=== PATIENT | female | born 1950 | race Caucasian/White ===

== ENCOUNTER → 2017-07-12 | Outpatient (CLI) | payer OTHER ==
--- NOTE | 2017-07-17 11:35 | RSPPFT ---
DATE OF PROCEDURE: 07/12/17 COMMENTS: VOLUMES DYNAMIC: FVC and FEV1 mildly reduced. STATIC: TLC, FRC and RV moderately reduced. FLOWS: FEV1% and FEF 25-75 normal. DIFFUSION: Severely reduced. FLOW VOLUME LOOP: Restrictive configuration. IMPRESSION: Moderately severe restrictive ventilatory defect with no significant obstruction. There is a severe reduction in diffusion.
== END ==
LOC: PHRSP 08:36
PROVIDERS: ATTEND Internal Medicine
DX: J98.4 Other disorders of lung (principal)
CPT/HCPCS: 94060; 94620; 94726; 94729

== ENCOUNTER 2017-12-02 12:19 | Inpatient (IN) | payer OTHER, MEDICARE ==
[~2017-12-02] VITALS: Ht 157.5 cm; Wt 72.4 kg
[2017-12-02 12:30] VITALS: BP 147/62; PULSE 90; RESP 22; TEMP 97.4; O2SAT 98
--- NOTE | 2017-12-02 12:39 | PD ---
HPI Chief Complaint: SOB Time Seen by Provider: 12:32 Travel History International Travel<30 days: No Contact w/Intl Traveler<30days: No History of Present Illness HPI 67yo F with PMH of sarcoidosis, lupus, interstitial lung disease, sick sinus syndrome s/p pacemaker here with c/o sob for 2 days but worst today. Pt went to [place] and was on a 10 hour bus ride last night. SOB began while in [place]. Denies any fever, chest pain, n/v, abdominal pain, focal weakness or numbness. Pt also noticed more bilateral lower extremity swelling for last 5-6 days. Said she gets this frequently and usually improves with elevation of legs. Pt's acoustical installer is Dr. Gurrola and labor and employment paralegal is Dr. Valderrama. Pt has not needed home oxygen for 2 years. PFSH Social History Tobacco Use: No Allergies-Medications (Allergen,Severity, Reaction): Coded Allergies: Penicillins (Verified Allergy, Intermediate, Rash, 12/02/17) vancomycin (Verified Allergy, Intermediate, Rash, 12/02/17) Reported Meds & Prescriptions Reported Meds & Active Scripts Active Reported Novolog Inj (Insulin Aspart) 1,000 Unit/10 Ml Vial 1-9 Units SQ ACHS Max dose at bedtime:( )units; sugars less than 70,(0)units; sugars 150-199,(1) unit; sugars 200-249,(3) units; sugars 250-299,(5) units; sugars 300-349,(7) units; sugars greater than 349,(9) units Lantus Inj (Insulin Glargine) 1,000 Unit/10 Ml Vial 12 Units SQ HS Metoprolol Succinate ER 24 HR (Metoprolol Succinate) 100 Mg Tab 100 Mg PO DAILY Atorvastatin (Atorvastatin Calcium) 10 Mg Tab 10 Mg PO HS Mycophenolate (Mycophenolate Mofetil) 250 Mg Cap 1,000 Mg PO BID Amlodipine (Amlodipine Besylate) 10 Mg Tab 10 Mg PO DAILY Meloxicam 15 Mg Tab 15 Mg PO DAILY Sertraline (Sertraline HCl) 50 Mg Tab 50 Mg PO DAILY Levothyroxine (Levothyroxine Sodium) 88 Mcg Tab 88 Mcg PO DAILY Aspirin 81 Mg Chew 81 Mg CHEW DAILY Review of Systems Except as stated in HPI: all other systems reviewed are Neg Physical Exam Narrative GENERAL: 67yo F in moderate distress. SKIN: Focused skin assessment warm/dry. HEAD: Atraumatic. Normocephalic. EYES: Pupils equal and round. No scleral icterus. No injection or drainage. ENT: No nasal bleeding or discharge. Mucous membranes pink and moist. NECK: Trachea midline. No JVD. CARDIOVASCULAR: Regular rate and rhythm. No murmur appreciated. RESPIRATORY: + accessory muscle use. Bilateral crackles. GASTROINTESTINAL: Abdomen soft, non-tender, nondistended. Hepatic and splenic margins not palpable. MUSCULOSKELETAL: No obvious deformities. No clubbing. No cyanosis. +Bilateral lower extremity edema. NEUROLOGICAL: Awake and alert. No obvious cranial nerve deficits. Motor grossly within normal limits. Normal speech. PSYCHIATRIC: Appropriate mood and affect; insight and judgment normal. Data Data Last Documented VS Vital Signs Date Time Temp Pulse Resp B/P (MAP) Pulse Ox O2 Delivery O2 Flow Rate FiO2 12/02/17 14:36 90 24 138/62 (87) 96 Nasal Cannula 3.00 12/02/17 12:30 97.4 Orders Orders Complete Blood Count With Diff (12/02/17 12:32) Basic Metabolic Panel (Bmp) (12/02/17 12:32) B-Type Natriuretic Peptide (12/02/17 12:32) Act Partial Throm Time (Ptt) (12/02/17 12:32) Prothrombin Time / Inr (Pt) (12/02/17 12:32) Troponin I (12/02/17 12:32) Arterial Blood Gas (Abg) (12/02/17 12:32) Chest, Single Ap (12/02/17 12:32) Ct Pulmonary Angiogram (12/02/17 ) Iohexol 350 Inj (Omnipaque 350 Inj) (12/02/17 14:11) Electrocardiogram (12/02/17 12:31) Levofloxacin 750 Mg Premix Inj (Levaquin (12/02/17 15:45) Admit Order (Ed Use Only) (12/02/17 16:01) Labs Laboratory Tests Test 12/02/17 12:50 12/02/17 13:35 White Blood Count 9.4 TH/MM3 Red Blood Count 3.96 MIL/MM3 Hemoglobin 11.7 GM/DL Hematocrit 35.9 % Mean Corpuscular Volume 90.6 FL Mean Corpuscular Hemoglobin 29.5 PG Mean Corpuscular Hemoglobin Concent 32.6 % Red Cell Distribution Width 14.9 % Platelet Count 177 TH/MM3 Mean Platelet Volume 8.3 FL Neutrophils (%) (Auto) 72.8 % Lymphocytes (%) (Auto) 10.2 % Monocytes (%) (Auto) 11.5 % Eosinophils (%) (Auto) 2.6 % Basophils (%) (Auto) 2.9 % Neutrophils # (Auto) 6.8 TH/MM3 Lymphocytes # (Auto) 1.0 TH/MM3 Monocytes # (Auto) 1.1 TH/MM3 Eosinophils # (Auto) 0.2 TH/MM3 Basophils # (Auto) 0.3 TH/MM3 CBC Comment DIFF FINAL Differential Comment Prothrombin Time 10.2 SEC Prothromb Time International Ratio 1.0 RATIO Activated Partial Thromboplast Time 25.9 SEC Blood Urea Nitrogen 18 MG/DL Creatinine 0.64 MG/DL Random Glucose 184 MG/DL Calcium Level 8.4 MG/DL Sodium Level 140 MEQ/L Potassium Level 4.3 MEQ/L Chloride Level 106 MEQ/L Carbon Dioxide Level 21.6 MEQ/L Anion Gap 12 MEQ/L Estimat Glomerular Filtration Rate 93 ML/MIN Troponin I 0.02 NG/ML B-Type Natriuretic Peptide 133 PG/ML Blood Gas Puncture Site LT RADIAL Blood Gas Patient Temperature 98.6 Blood Gas HCO3 21 mmol/L Blood Gas Base Excess -2.7 mmol/L Blood Gas Oxygen Saturation 84 % Arterial Blood pH 7.45 Arterial Blood Partial Pressure CO2 30 mmHG Arterial Blood Partial Pressure O2 56 mmHG Arterial Blood Oxygen Content 13.9 Vol % Arterial Blood Carboxyhemoglobin 2.3 % Arterial Blood Methemoglobin 1.3 % Blood Gas Hemoglobin 11.8 G/DL Oxygen Delivery Device ROOM AIR Blood Gas Inspired Oxygen 21 % [facility] Medical Decision Making Medical Screen Exam Complete: Yes Emergency Medical Condition: Yes Interpretation(s) EKG: NSR 90bpm. Normal axis. T wave flattening. Differential Diagnosis CHF vs. Pneumonia vs. pleural effusion vs. worsening interstitial lung disease Narrative Course 67yo F here with sob for 2 days, worst today. Pt is hypoxic on room air and ABG showed O2 sat 84% and pO2 56 on room air. Pt saturating at 98% on 3L NC. She has history of interstitial lung disease but has not needed home oxygen in 2 years. Labs reviewed, no leukocytosis. H/H normal. BNP mildly elevated at 133. BMP unremarkable. Troponin negative. CXR showed diffuse increased interstitial markings. Could be related to pulmonary edema or chronic interstitial disease. Given pt's sudden sob, hypoxemia and recent travel, will obtain CT angio. CT angio showed no PE. Interstitial disease at base and patchy fernanda of consolidation throughout the lungs with relative sparing of left upper lung. Inflammatory/infectious processes need to be suspected. Mediastinal adenopathy. Nonspecific. Could be reactive to lung processes. Pt has sarcoidosis so likely from that. Pt covered with levofloxacin for possible infection. Will need to come in and be evaluated by acoustical installer. Discussed with Dr. Calvillo and accepted to her service. Critical Care Narrative Aggregate critical care time was 40 minutes. Time to perform other separately billable procedures was not included in the critical care time. My time did not include minutes spent treating any other patients simultaneously or on activities that did not directly contribute to the patient's treatment. The services I provided to this patient were to treat and/or prevent clinically significant deterioration that could result in: respiratory distress or . I provided critical care services requiring my management, as noted below: Chart data review, documentation time, medication orders and management, vital sign assessments/reviewing monitor data, ordering and reviewing lab tests, ordering and interpreting/reviewing x-rays and diagnostic studies, care of the patient and discussion of the patient with the admitting physicians. Diagnosis Primary Impression: Hypoxemia Additional Impression: Pneumonia Qualified Codes: J18.9 - Pneumonia, unspecified organism Admitting Information Admitting Physician Requests: Admit Eliza Coughlin DO Dec 02, 2017 12:39
[2017-12-02 13:02] LABS: AUTOMATED NEUTROPHIL # 6.8 TH/MM3 (1.8-7.7); BASOPHIL # 0.3 TH/MM3 (0-0.2); BASOPHIL % 2.9 % (0.0-2.0); EOSINOPHIL # 0.2 TH/MM3 (0-0.4); EOSINOPHIL % 2.6 % (0.0-4.0); HEMATOCRIT 35.9 % (35.0-46.0); HEMOGLOBIN 11.7 GM/DL (11.6-15.3); LYMPH % 10.2 % (9.0-44.0); MEAN CELL VOLUME 90.6 FL (80.0-100.0); MEAN CORPUSCULAR HEMOGLOBIN 29.5 PG (27.0-34.0); MEAN CORPUSCULAR HGB CONC 32.6 % (32.0-36.0); MEAN PLATELET VOLUME 8.3 FL (7.0-11.0); MONO % 11.5 % (0.0-8.0); MONOCYTE # 1.1 TH/MM3 (0-0.9); NEUT % 72.8 % (16.0-70.0); PLATELET COUNT 177 TH/MM3 (150-450); RED BLOOD COUNT 3.96 MIL/MM3 (4.00-5.30); RED CELL DISTRIBUTION WIDTH 14.9 % (11.6-17.2); WHITE BLOOD COUNT 9.4 TH/MM3 (4.0-11.0)
--- NOTE | 2017-12-02 13:17 | RADRPT ---
EXAM DATE/TIME: 12/02/2017 13:05 [facility] COMPARISON: No previous studies available for comparison. INDICATIONS : Short of breath, cough, congestion MEDICAL HISTORY : None. SURGICAL HISTORY : Pacemaker. ENCOUNTER: Initial ACUITY: 1 day PAIN SCORE: 0/10 LOCATION: Bilateral chest FINDINGS: There is a patient by seen in the right chest. The heart size is within normal limits. There is diffu se increased interstitial markings. The there appear to be mild bilateral pleural effusions being wor se on the left. The patient is rotated towards the right. There is a levocurvature of the thoracic sp ine. CONCLUSION: Diffuse increased interstitial markings. If these are acute, they could be related to pulmonary edema . Chronic interstitial disease could have a similar appearance. Prior exams are unavailable. Terence Iqbal MD on December 02, 2017 at 13:11 Board Certified Radiologist. This report was verified electronically.
[2017-12-02 13:18] LABS: CALCIUM 8.4 MG/DL (8.5-10.1)
[2017-12-02 13:19] LABS: BICARBONATE 21.6 MEQ/L (21.0-32.0)
[2017-12-02] MEDS ORDERED: AMLO10TA2 PO (13:19)
[2017-12-02] MEDS ORDERED: MELO15TA20 PO (13:19)
[2017-12-02] MEDS ORDERED: SERT-132 PO (13:19)
[2017-12-02] MEDS ORDERED: ASPI-516 CHEW (13:19)
[2017-12-02] MEDS ORDERED: METO1TAB43 PO (13:19)
[2017-12-02] MEDS ORDERED: MYCO250C PO (13:19)
[2017-12-02] MEDS ORDERED: LEVO88TA2 PO (13:19)
[2017-12-02] MEDS ORDERED: ATOR10TA15 PO (13:19)
[2017-12-02 13:22] LABS: PROTHROMBIN TIME - PATIENT 10.2 SEC (9.8-11.6)
[2017-12-02 13:23] LABS: CREATININE 0.64 MG/DL (0.50-1.00)
[2017-12-02 13:27] LABS: TROPONIN I 0.02 NG/ML (0.02-0.05)
[2017-12-02] MEDS ORDERED: IOHEXOL 350 MG/ML 10 ML VIAL (for RAD DIAG) IVCONTRAST ONE (14:11)
[2017-12-02 14:36] VITALS: BP 138/62; PULSE 90; RESP 24; O2SAT 96
--- NOTE | 2017-12-02 15:00 | RADRPT ---
EXAM DATE/TIME: 12/02/2017 13:56 [facility] COMPARISON: CHEST SINGLE AP, December 02, 2017, 13:05. INDICATIONS : Increasing shortness of breath. Post long road trip. IV CONTRAST: 100 cc Omnipaque 350 (iohexol) IV RADIATION DOSE: 6.63 CTDIvol (mGy) MEDICAL HISTORY : Lupus. ILD. Sarcoidosis. SURGICAL HISTORY : Appendectomy. Tonsillectomy. Left shoulder, right ankle. ENCOUNTER: Initial ACUITY: 1 day PAIN SCALE: 2/10 LOCATION: Chest TECHNIQUE: Volumetric scanning of the chest was performed using a pulmonary embolism protocol MIP images were re constructed. Using automated exposure control and adjustment of the mA and/or kV according to patien t size, radiation dose was kept as low as reasonably achievable to obtain optimal diagnostic quality images. DICOM format image data is available electronically for review and comparison. Follow-up recommendations for detected pulmonary nodules are based at a minimum on nodule size and pa tient risk factors according to Fleischner Society Guidelines. FINDINGS: PULMONARY ARTERIES: No filling defects are seen in the pulmonary arteries through the segmental level. LUNGS: There is interstitial disease seen at the lower lungs bilaterally being worse on the right. There are patchy areas of consolidation seen throughout the lungs with relative sparing of the left upper lung . PLEURAE: Minimal bilateral pleural effusions are present. MEDIASTINUM: There are prominent lymph nodes in the mediastinum. The most prominent lymph node is in the right par atracheal region measuring up to 2.5 cm. There are lymph nodes seen in the subcarinal, tracheobronchi al, and hilar regions. There is a pacing device seen in the right chest. MUSCULOSKELETAL: Within normal limits for patient age. MISCELLANEOUS: The visualized upper abdominal organs demonstrate no acute abnormality. CONCLUSION: 1. No pulmonary embolus. 2. Interstitial disease at the bases and patchy areas of consolidation throughout the lungs with rela tive sparing of the left upper lung. Inflammatory/infectious processes need to be suspected. 3. Mediastinal adenopathy. This is nonspecific. It could be reactive to the lung processes. Neoplasti c enlargement cannot be excluded on imaging alone. Terence Iqbal MD on December 02, 2017 at 14:19 Board Certified Radiologist. This report was verified electronically.
[2017-12-02] MEDS ORDERED: LEVOFLOXACIN 750 MG PREMIX INJ 150 ML IV ONE (15:45)
[2017-12-02 16:15] VITALS: BP 136/68; PULSE 90; RESP 24; O2SAT 94
[2017-12-02] MEDS ORDERED: ONDANSETRON HCL 4 MG/2 ML VIAL IV PUSH PRN (16:15)
[2017-12-02] MEDS ORDERED: NOVOLOGP2 SQ (16:15)
[2017-12-02] MEDS ORDERED: LANTUS2P SQ (16:15)
[2017-12-02] MEDS ORDERED: SODIUM CHLORIDE 0.9% FLUSH 10 ML FLUSH IV FLUSH PRN (16:15)
[2017-12-02] MEDS ORDERED: guaiFENesin/CODEINE SYRUP 200 MG/20 MG/10 ML CUP PO PRN (16:15)
[2017-12-02] MEDS ORDERED: DEXTROSE 50% IN WATER 50 ML VIAL(D50) IV PUSH PRN (16:15)
[2017-12-02] MEDS ORDERED: ACETAMINOPHEN 325 MG TAB PO PRN (16:15)
[2017-12-02] MEDS ORDERED: GLUCAGON 1 MG/ML VIAL OTHER PRN (16:15)
[2017-12-02] MEDS ORDERED: RESP: ALBUTEROL 2.5 MG/IPRATROPIUM 0.5 MG NEB (PRN) INH (16:15)
--- NOTE | 2017-12-02 16:28 | HHI.HP ---
[facility] Service [facility] Primary Care Physician Karl Daugherty Do, MD Admission Diagnosis Hypoxemia, bilateral pneumonia Diagnoses: Chief Complaint: Increased work of breathing and wheezes Travel History International Travel<30 Days: No Contact w/Intl Traveler <30 Da: No Traveled to Known Affected Are: No History of Present Illness This patient is a pleasant 67-year-old female with a history of interstitial lung disease and sarcoidosis who has come to the hospital complaining of increased shortness of breath for the last 2 days. Recently she was on a bus trip from [facility] to [place] and arrived home yesterday. Yesterday evening her who was in the room and says that she was wheezing and making "God awful "breathing sounds. he checked her oxygen at home and it was in the low 80s. Increased work of breathing and wheezes and has hypoxemic on ambulation in the emergency room. She had a nebulizer at home but it was discontinued per her providers. Since that time she has received some bronchodilators and steroids and felt a little better. Patient is admitted to the hospital with acute hypoxemic respiratory failure Review of Systems Constitutional: DENIES: Diaphoretic episodes, Fatigue, Fever, Weight gain, Weight loss, Chills, Dizziness, Change in appetite, Night Sweats Endocrine: DENIES: Abnorml menstrual pattern, Heat/cold intolerance, Polydipsia , Polyuria, Polyphagia Eyes: DENIES: Blurred vision, Diplopia, Eye inflammation, Eye pain, Vision loss , Photosensitivity, Double Vision Ears, nose, mouth, throat: DENIES: Tinnitus, Hearing loss, Vertigo, Nasal discharge, Oral lesions, Throat pain, Hoarseness, Ear Pain, Running Nose, Epistaxis, Sinus Pain, Toothache, Odynophagia Respiratory: COMPLAINS OF: Cough, Wheezing, Shortness of breath, DENIES: Apneas , Snoring, Hemoptysis, Sputum production Cardiovascular: COMPLAINS OF: Dyspnea on Exertion, DENIES: Chest pain, Palpitations, Syncope, PND, Lower Extremity Edema, Orthopnea, Claudication Gastrointestinal: DENIES: Abdominal pain, Black stools, Bloody stools, Constipation, Diarrhea, Nausea, Vomiting, Difficulty Swallowing, Anorexia Genitourinary: DENIES: Abnormal vaginal bleeding, Dysmenorrhea, Dyspareunia, Sexual dysfunction, Urinary frequency, Urinary incontinence, Urgency, Hematuria , Dysuria, Nocturia, Vaginal discharge Musculoskeletal: DENIES: Joint pain, Muscle aches, Stiffness, Joint Swelling, Back pain, Neck pain Integumentary: DENIES: Abnormal pigmentation, Pruritus, Rash, Nail changes, Breast masses, Breast skin changes, Nipple discharge Hematologic/lymphatic: DENIES: Bruising, Lymphadenopathy Immunologic/allergic: DENIES: Eczema, Urticaria Neurologic: DENIES: Abnormal gait, Headache, Localized weakness, Paresthesias, Seizures, Speech Problems, Tremor, Poor Balance Psychiatric: DENIES: Anxiety, Confusion, Mood changes, Depression, Hallucinations, Agitation, Suicidal Ideation, Homicidal Ideation, Delusions Except as stated in HPI: all other systems reviewed are Neg Past Family Social History Past Medical History Diabetes Interstitial lung disease Sarcoidosis Lupus Thyroid disease Past Surgical History Tonsillectomy Right ankle, left shoulder, cholecystectomy, appendectomy Reported Medications Reviewed in the EMR, no steroids recently Allergies: Coded Allergies: Penicillins (Verified Allergy, Intermediate, Rash, 12/02/17) vancomycin (Verified Allergy, Intermediate, Rash, 12/02/17) Active Ordered Medications Reviewed in the EMR Family History Mother from asthma and respiratory failure Father from a heart attack at 52 Brother has coronary disease Social History Recent bus trip from [place] in [place] No tobacco Physical Exam Vital Signs Vital Signs Date Time Temp Pulse Resp B/P (MAP) Pulse Ox O2 Delivery O2 Flow Rate FiO2 12/02/17 16:15 90 24 136/68 (90) 94 Nasal Cannula 3.00 12/02/17 14:36 90 24 138/62 (87) 96 Nasal Cannula 3.00 12/02/17 12:40 22 98 Nasal Cannula 3.00 12/02/17 12:30 97.4 90 22 147/62 (90) 98 Physical Exam GENERAL: This is a well-nourished, well-developed patient, in no apparent distress. SKIN: No rashes, ecchymoses or lesions. Cool and dry. HEAD: Atraumatic. Normocephalic. No temporal or scalp tenderness. EYES: Pupils equal round and reactive. Extraocular motions intact. No scleral icterus. No injection or drainage. ENT: Nose without bleeding, purulent drainage or septal hematoma. Throat without erythema, tonsillar hypertrophy or exudate. Uvula midline. Airway patent. NECK: Trachea midline. No JVD or lymphadenopathy. Supple, nontender, no meningeal signs. CARDIOVASCULAR: Regular rate and rhythm without murmurs, gallops, or rubs. RESPIRATORY: Clear to auscultation. Breath sounds equal bilaterally. No wheezes , rales, or rhonchi. GASTROINTESTINAL: Abdomen soft, non-tender, nondistended. No hepato-splenomegaly , or palpable masses. No guarding. MUSCULOSKELETAL: Extremities without clubbing, cyanosis, or edema. No joint tenderness, effusion, or edema noted. No calf tenderness. Negative Homans sign bilaterally. NEUROLOGICAL: Awake and alert. Cranial nerves II through XII intact. Motor and sensory grossly within normal limits. Five out of 5 muscle strength in all muscle groups. Normal speech. Laboratory Laboratory Tests Test 12/02/17 12:50 12/02/17 13:35 White Blood Count 9.4 Red Blood Count 3.96 Hemoglobin 11.7 Hematocrit 35.9 Mean Corpuscular Volume 90.6 Mean Corpuscular Hemoglobin 29.5 Mean Corpuscular Hemoglobin Concent 32.6 Red Cell Distribution Width 14.9 Platelet Count 177 Mean Platelet Volume 8.3 Neutrophils (%) (Auto) 72.8 Lymphocytes (%) (Auto) 10.2 Monocytes (%) (Auto) 11.5 Eosinophils (%) (Auto) 2.6 Basophils (%) (Auto) 2.9 Neutrophils # (Auto) 6.8 Lymphocytes # (Auto) 1.0 Monocytes # (Auto) 1.1 Eosinophils # (Auto) 0.2 Basophils # (Auto) 0.3 CBC Comment DIFF FINAL Differential Comment Prothrombin Time 10.2 Prothromb Time International Ratio 1.0 Activated Partial Thromboplast Time 25.9 Blood Urea Nitrogen 18 Creatinine 0.64 Random Glucose 184 Calcium Level 8.4 Sodium Level 140 Potassium Level 4.3 Chloride Level 106 Carbon Dioxide Level 21.6 Anion Gap 12 Estimat Glomerular Filtration Rate 93 Troponin I 0.02 B-Type Natriuretic Peptide 133 Blood Gas Puncture Site LT RADIAL Blood Gas Patient Temperature 98.6 Blood Gas HCO3 21 Blood Gas Base Excess -2.7 Blood Gas Oxygen Saturation 84 Arterial Blood pH 7.45 Arterial Blood Partial Pressure CO2 30 Arterial Blood Partial Pressure O2 56 Arterial Blood Oxygen Content 13.9 Arterial Blood Carboxyhemoglobin 2.3 Arterial Blood Methemoglobin 1.3 Blood Gas Hemoglobin 11.8 Oxygen Delivery Device ROOM AIR Blood Gas Inspired Oxygen 21 Result Diagram: 12/02/17 1250 12/02/[address] of the chest shows interstitial lung disease with infiltrates likely pneumonia Caprini VTE Risk Assessment Caprini VTE Risk Assessment: Mod/High Risk (score >= 2) Caprini Risk Assessment Model Point Value = 1 Point Value = 2 Point Value = 3 Point Value = 5 Age 41-60 Minor surgery BMI > 25 kg/m2 Swollen legs Varicose veins or History of unexplained or recurrent spontaneous Oral contraceptives or hormone replacement Sepsis (< 1 month) Serious lung disease, including pneumonia (< 1 month) Abnormal pulmonary function Acute myocardial infarction Congestive heart failure (< 1 month) History of inflammatory bowel disease Medical patient at bed rest Age 61-74 Arthroscopic surgery Major open surgery (> 45 min) Laparoscopic surgery (> 45 min) Malignancy Confined to bed (> 72 hours) Immobilizing plaster cast Central venous access Age >= 75 History of VTE Family history of VTE Factor V Leiden Prothrombin [id number] Lupus anticoagulant Anticardiolipin antibodies Elevated serum homocysteine Heparin-induced thrombocytopenia Other congenital or acquired thrombophilia Stroke (< 1 month) Elective arthroplasty Hip, pelvis, or leg fracture Acute spinal cord injury (< 1 month) Prophylaxis Regimen Total Risk Factor Score Risk Level Prophylaxis Regimen 0-1 Low Early ambulation 2 Moderate Order ONE of the following: *Sequential Compression Device (SCD) *Heparin 5000 units SQ BID 3-4 Higher Order ONE of the following medications: *Heparin 5000 units SQ TID *Enoxaparin/Lovenox 40 mg SQ daily (WT < 150 kg, CrCl > 30 mL/min) *Enoxaparin/Lovenox 30 mg SQ daily (WT < 150 kg, CrCl > 10-29 mL/min) *Enoxaparin/Lovenox 30 mg SQ BID (WT < 150 kg, CrCl > 30 mL/min) AND/OR *Sequential Compression Device (SCD) 5 or more Highest Order ONE of the following medications: *Heparin 5000 units SQ TID (Preferred with Epidurals) *Enoxaparin/Lovenox 40 mg SQ daily (WT < 150 kg, CrCl > 30 mL/min) *Enoxaparin/Lovenox 30 mg SQ daily (WT < 150 kg, CrCl > 10-29 mL/min) *Enoxaparin/Lovenox 30 mg SQ BID (WT < 150 kg, CrCl > 30 mL/min) AND *Sequential Compression Device (SCD) Assessment and Plan Problem List: (1) Acute hypoxemic respiratory failure ICD Code: J96.01 - Acute respiratory failure with hypoxia Plan: Likely multifactorial due to underlying interstitial lung disease with pneumonia Continue with antibiotic therapy, bronchodilators, patient education and follow- up clinically Continue O2 (2) DM2 (diabetes mellitus, type 2) ICD Code: E11.9 - Type 2 diabetes mellitus without complications Plan: Continue with diabetic management and sliding scale Diabetic diet (3) HTN (hypertension) ICD Code: I10 - Essential (primary) hypertension Plan: Continue with home medications for blood control (4) Interstitial lung disease ICD Code: J84.9 - Interstitial pulmonary disease, unspecified Plan: Currently decompensated which is multifactorial Continue with mycophenolate Code Status full code Discussed Condition With patient, ER MD Physician Certification 2 Midnight Certification Type: Admission for Inpatient Services Order for Inpatient Services The services are ordered in accordance with Medicare regulations or non- Medicare payer requirements, as applicable. In the case of services not specified as inpatient-only, they are appropriately provided as inpatient services in accordance with the 2-midnight benchmark. Estimated LOS (days): 3 3 days is the estimated time the patient will need to remain in the hospital, assuming treatment plan goals are met and no additional complications. Post-Hospital Plan: Home Candida Calvillo MD Dec 02, 2017 16:28
[2017-12-02] MEDS: INSULIN ASPART SUPPLEMENTAL SCALE SQ SCH ×2 (17:00→20:55)
[2017-12-02 17:20] VITALS: BP 135/91; PULSE 79; RESP 24; TEMP 97.3
[2017-12-02] MEDS: methylPREDNISolone SOD SUCC 40 MG/1 ML VIAL IV PUSH SCH (17:27)
[2017-12-02] MEDS: cefTRIAXone INJ 1,000 MG in SODIUM CHLORIDE 0.9% INJ 100 ML IV SCH (17:28)
[2017-12-02] MEDS: ENOXAPARIN SODIUM 40 MG/0.4 ML SYRINGE SQ SCH (17:43)
[2017-12-02] MEDS: AZITHROMYCIN INJ 500 MG in SODIUM CHLOR 0.9% 250 ML INJ 250 ML IV SCH (18:28)
[2017-12-02] MEDS: MYCOPHENOLATE MOFETIL 500 MG TAB PO SCH (18:44)
--- NOTE | 2017-12-02 19:09 | EKG ---
Date Performed: 12/02/2017 Time Performed: 12:31:08 PTAGE: 67 years EKG: Sinus rhythm NONSPECIFIC T-WAVE ABNORMALITY BORDERLINE ECG NO PREVIOUS TRACING DOCTOR: Selena Roa Interpretating Date/Time 12/02/2017 19:07:47
[2017-12-02 20:23] VITALS: O2SAT 93
[2017-12-02] MEDS: RESP: ALBUTEROL 2.5 MG/IPRATROPIUM 0.5 MG NEB (SCH) INH (20:23)
[2017-12-02] MEDS: INSULIN DETEMIR 100 UNITS/ML VIAL SQ SCH (20:54)
[2017-12-02] MEDS: ATORVASTATIN 10 MG TAB PO SCH (20:54)
[2017-12-02] MEDS: SODIUM CHLORIDE 0.9% FLUSH 10 ML FLUSH IV FLUSH SCH (20:55)
[2017-12-02 22:25] VITALS: BP 121/60; PULSE 83; RESP 24; TEMP 97.2; O2SAT 91
[2017-12-03] VITALS (8 sets, daily range): BP systolic 121–130; BP diastolic 57–62; PULSE 85–96; RESP 16–24; TEMP 96.2–97.9; O2SAT 90–99
[2017-12-03] MEDS: LEVOTHYROXINE SODIUM 88 MCG TAB PO SCH (05:25)
[2017-12-03] MEDS: methylPREDNISolone SOD SUCC 40 MG/1 ML VIAL IV PUSH SCH ×2 (05:25→17:09)
[2017-12-03] MEDS: MYCOPHENOLATE MOFETIL 500 MG TAB PO SCH ×2 (06:09→17:09)
[2017-12-03] MEDS: RESP: ALBUTEROL 2.5 MG/IPRATROPIUM 0.5 MG NEB (SCH) INH ×3 (07:18→19:53)
[2017-12-03] MEDS: INSULIN ASPART SUPPLEMENTAL SCALE SQ SCH ×4 (08:00→21:00)
[2017-12-03] MEDS: ASPIRIN 81 MG CHEW TAB CHEW SCH (08:01)
[2017-12-03] MEDS: METOPROLOL SUCCINATE 50 MG EXTENDED RELEASE TAB PO SCH (08:01)
[2017-12-03] MEDS: SERTRALINE HCL 50 MG TAB PO SCH (08:01)
[2017-12-03 08:48] LABS: BASOPHIL % 0.5 % (0.0-2.0); EOSINOPHIL % 0.1 % (0.0-4.0); HEMATOCRIT 34.8 % (35.0-46.0); HEMOGLOBIN 11.5 GM/DL (11.6-15.3); LYMPH % 9.6 % (9.0-44.0); LYMPHOCYTE # 0.6 TH/MM3 (1.0-4.8); MEAN CELL VOLUME 89.7 FL (80.0-100.0); MEAN CORPUSCULAR HEMOGLOBIN 29.6 PG (27.0-34.0); MEAN PLATELET VOLUME 8.5 FL (7.0-11.0); MONO % 1.2 % (0.0-8.0); MONOCYTE # 0.1 TH/MM3 (0-0.9); NEUT % 88.6 % (16.0-70.0); PLATELET COUNT 176 TH/MM3 (150-450); RED BLOOD COUNT 3.89 MIL/MM3 (4.00-5.30); RED CELL DISTRIBUTION WIDTH 14.9 % (11.6-17.2); WHITE BLOOD COUNT 6.7 TH/MM3 (4.0-11.0)
--- NOTE | 2017-12-03 08:50 | HHI.PR ---
Subjective Remarks Patient seen in follow-up for respiratory failure secondary to influenza and pneumonia Still working a bit hard to breathe today. Patient has interstitial lung disease Objective Vitals Vital Signs Date Time Temp Pulse Resp B/P (MAP) Pulse Ox O2 Delivery O2 Flow Rate FiO2 12/03/17 07:20 91 Nasal Cannula 3.00 12/03/17 04:25 12/03/17 00:47 96.7 87 24 126/61 (82) 91 12/02/17 22:25 97.2 83 24 121/60 (80) 91 12/02/17 20:23 93 Nasal Cannula 3.00 12/02/17 17:20 97.3 79 24 135/91 (106) 12/02/17 16:56 12/02/17 16:15 90 24 136/68 (90) 94 Nasal Cannula 3.00 12/02/17 14:36 90 24 138/62 (87) 96 Nasal Cannula 3.00 12/02/17 12:40 22 98 Nasal Cannula 3.00 12/02/17 12:30 97.4 90 22 147/62 (90) 98 I/O 12/02/17 12/02/17 12/02/17 12/03/17 12/03/17 12/03/17 07:00 15:00 23:00 07:00 15:00 23:00 Intake Total 250 ml Balance 250 ml Intake IV Total 250 ml # Voids 1 5 Result Diagram: 12/02/17 1250 12/02/17 1250 Objective Remarks GENERAL: This is a well-nourished, well-developed patient, dyspneic at rest CARDIOVASCULAR: Regular rate and rhythm without murmurs, gallops, or rubs. RESPIRATORY: Scattered wheezes but improved airflow GASTROINTESTINAL: Abdomen soft, non-tender, nondistended. Normal active bowel sounds MUSCULOSKELETAL: Extremities without clubbing, cyanosis, or edema. NEURO: Alert & Oriented x4 to person, place, time, situation. Moves all ext x4 A/P Problem List: (1) Acute hypoxemic respiratory failure ICD Code: J96.01 - Acute respiratory failure with hypoxia Plan: Likely multifactorial due to underlying interstitial lung disease with pneumonia and now influenza Continue IV antibiotic therapy, nebulized bronchodilators, patient education and follow-up clinically Continue O2 Add Tamiflu (2) DM2 (diabetes mellitus, type 2) ICD Code: E11.9 - Type 2 diabetes mellitus without complications Plan: Continue with diabetic management and sliding scale Diabetic diet (3) HTN (hypertension) ICD Code: I10 - Essential (primary) hypertension Plan: Continue with home medications for blood control (4) Interstitial lung disease ICD Code: J84.9 - Interstitial pulmonary disease, unspecified Plan: Currently decompensated which is multifactorial Continue with mycophenolate Patient follows up with Dr. Cullen Gurrola who we will consult Discharge Planning Pending clinical improvement Candida Calvillo MD Dec 03, 2017 08:50
[2017-12-03] MEDS: SODIUM CHLORIDE 0.9% FLUSH 10 ML FLUSH IV FLUSH SCH ×2 (09:00→22:13)
[2017-12-03 09:03] LABS: CALCIUM 9.2 MG/DL (8.5-10.1)
[2017-12-03 09:04] LABS: BICARBONATE 17.7 MEQ/L (21.0-32.0)
[2017-12-03 09:07] LABS: CREATININE 0.64 MG/DL (0.50-1.00)
[2017-12-03] MEDS ORDERED: BISACODYL EC 5 MG TABEC PO ONE (10:15)
[2017-12-03] MEDS: OSELTAMIVIR PHOSPHATE 75 MG CAP PO SCH ×2 (10:30→22:13)
[2017-12-03] MEDS: MELOXICAM 15 MG TAB PO SCH (10:31)
--- NOTE | 2017-12-03 12:21 | MB ---
cc: Sam Gomez MD DATE: 12/03/[address] Fernando Gurrola. HISTORY OF PRESENT ILLNESS: The patient is a very pleasant 67-year-old female who is known to have a history of interstitial lung disease and sarcoidosis. The patient is maintained on mycophenolate. The patient came to the hospital after she started to have shortness of breath the past 2 days that kept on getting worse and worse. She was on a trip in [place], [place]. The patient came to the hospital and today she is doing much better. The patient was wheezy and making significant awful sounds, according to her and her . Today, she is much better. She is not having any fevers or chills. She does not have any hemoptysis or chest pain. PAST MEDICAL HISTORY: Reviewed, positive for diabetes mellitus, interstitial lung disease/sarcoidosis, lupus, thyroid disease. PAST SURGICAL HISTORY: Positive for tonsillectomy, right ankle, left shoulder, cholecystectomy, and appendectomy. REVIEW OF SYSTEMS: Negative except what was mentioned in the HPI. ALLERGIES: ALLERGIC TO PENICILLIN AND VANCOMYCIN. PHYSICAL EXAMINATION: VITAL SIGNS: Shows temperature 96.2, pulse 85, respiratory rate 20, blood pressure 120/60, O2 saturation 97% on 3 L nasal cannula. HEENT: Atraumatic, normocephalic. NECK: Trachea midline. LUNGS: Bilateral expiratory wheezes of mild degree and mild rhonchi. HEART: Normal S1, S2. ABDOMEN: Soft. It is not tender. EXTREMITIES: No edema or cyanosis. NEUROLOGIC: Alert, oriented x 3, moves all extremities. LABORATORY DATA: Reviewed. WBC 6.7, hemoglobin 11.5, platelets 176. Her last ABGs done yesterday, pH 7.45, PaCO2 is 30, pO2 is 56. Sodium 136, potassium 4.1, BUN 22, creatinine 0.64. Her INR is 1.0. The patient's nasal washings were positive for flu A antigen. A CT angiogram that was done yesterday, it did show no pulmonary embolus. It did show interstitial lung disease at the bases and patchy areas of consolidation. Also, she does have nonspecific mediastinal lymphadenopathy that can be just reactive disease. ASSESSMENT AND PLAN: Acute hypoxemia, most likely secondary to her flu A and an exacerbation of her underlying interstitial/sarcoidosis lung disease. The patient is already improving. 1. Continue antiviral therapy as well as systemic steroids. Continue the current therapy the patient is on as an outpatient, namely the mycophenolate. 2. Continue oxygen therapy and wean for FiO2 more than or equal to 89%. 3. At this point, the patient is improving and I am expecting that she will be able to go home in 1 or [address] Fernando Gurrola will be back tomorrow and he will continue to follow the patient since she is already established with him. I had a long discussion with her and addressed all her questions. MD EUGENIO Miller/ASUNCION , 12:00 PM , 12:20 PM
[2017-12-03] MEDS: cefTRIAXone INJ 1,000 MG in SODIUM CHLORIDE 0.9% INJ 100 ML IV SCH (16:01)
[2017-12-03] MEDS: AZITHROMYCIN INJ 500 MG in SODIUM CHLOR 0.9% 250 ML INJ 250 ML IV SCH (16:58)
[2017-12-03] MEDS: ENOXAPARIN SODIUM 40 MG/0.4 ML SYRINGE SQ SCH (16:59)
[2017-12-03] MEDS ORDERED: INSULIN ASPART 1,000 UNITS/10 ML VIAL SQ ONE (19:15)
[2017-12-03] MEDS: INSULIN DETEMIR 100 UNITS/ML VIAL SQ SCH (21:00)
[2017-12-03] MEDS: ATORVASTATIN 10 MG TAB PO SCH (22:13)
[2017-12-03] MEDS: DOCUSATE SODIUM 100 MG CAP PO SCH (22:13)
[2017-12-04] VITALS (8 sets, daily range): BP systolic 122–148; BP diastolic 60–75; PULSE 82–93; RESP 18–20; TEMP 96–97.6; O2SAT 92–98
[2017-12-04] MEDS: MYCOPHENOLATE MOFETIL 500 MG TAB PO SCH ×2 (06:00→17:54)
[2017-12-04] MEDS: methylPREDNISolone SOD SUCC 40 MG/1 ML VIAL IV PUSH SCH ×2 (06:55→17:01)
[2017-12-04] MEDS: LEVOTHYROXINE SODIUM 88 MCG TAB PO SCH (06:56)
[2017-12-04] MEDS: RESP: ALBUTEROL 2.5 MG/IPRATROPIUM 0.5 MG NEB (SCH) INH ×3 (07:29→20:48)
[2017-12-04] MEDS: METOPROLOL SUCCINATE 50 MG EXTENDED RELEASE TAB PO SCH (09:13)
[2017-12-04] MEDS: OSELTAMIVIR PHOSPHATE 75 MG CAP PO SCH ×2 (09:13→21:46)
[2017-12-04] MEDS: ASPIRIN 81 MG CHEW TAB CHEW SCH (09:13)
[2017-12-04] MEDS: DOCUSATE SODIUM 100 MG CAP PO SCH ×2 (09:13→21:46)
[2017-12-04] MEDS: SERTRALINE HCL 50 MG TAB PO SCH (09:13)
[2017-12-04] MEDS: INSULIN ASPART SUPPLEMENTAL SCALE SQ SCH ×4 (09:13→21:00)
[2017-12-04] MEDS: SODIUM CHLORIDE 0.9% FLUSH 10 ML FLUSH IV FLUSH SCH ×2 (09:13→21:45)
[2017-12-04] MEDS: MELOXICAM 15 MG TAB PO SCH (09:14)
--- NOTE | 2017-12-04 16:42 | HHI.PR ---
Subjective Remarks Slowly improving in regards to respiratory status. Patient was on 4 L last night but has weaned down to 2 L this morning and is tolerating room air at rest when seen today. She may be ready for discharge home tomorrow. No new complaints from the patient. Objective Vital Signs Date Time Temp Pulse Resp B/P (MAP) Pulse Ox O2 Delivery O2 Flow Rate FiO2 12/04/17 14:29 92 Nasal Cannula 1.00 12/04/17 11:50 96.3 82 20 142/75 (97) 92 12/04/17 08:00 96 12/04/17 07:50 96.0 89 20 127/66 (86) 96 12/04/17 07:32 98 Nasal Cannula 4.00 12/04/17 00:00 97.6 92 18 122/68 (86) 95 12/03/17 20:00 97.9 96 16 121/62 (81) 97 12/03/17 19:53 95 Nasal Cannula 4.00 I/O 12/03/17 12/03/17 12/03/17 12/04/17 12/04/17 12/04/17 07:00 15:00 23:00 07:00 15:00 23:00 Intake Total 1196 ml Balance 1196 ml Intake Oral 1196 ml # Voids 5 7 4 # Bowel Movements 1 Result Diagram: 12/03/1782112/03/17821 Objective Remarks GENERAL: NAD, A&Ox3 HEAD: Normocephalic. NECK: Supple, trachea midline. No lymphadenopathy. EYES: No scleral icterus. No injection or drainage. CARDIOVASCULAR: Regular rate and rhythm without murmurs, gallops, or rubs. RESPIRATORY: Breath sounds equal bilaterally. No accessory muscle use. GASTROINTESTINAL: Abdomen soft, non-tender, nondistended. MUSCULOSKELETAL: No cyanosis, or edema. SKIN: Warm and dry. NEURO: No focal neurological deficitis. A/P Problem List: (1) Acute hypoxemic respiratory failure ICD Code: J96.01 - Acute respiratory failure with hypoxia (2) DM2 (diabetes mellitus, type 2) ICD Code: E11.9 - Type 2 diabetes mellitus without complications (3) HTN (hypertension) ICD Code: I10 - Essential (primary) hypertension (4) Interstitial lung disease ICD Code: J84.9 - Interstitial pulmonary disease, unspecified (5) Pneumonia ICD Code: J18.9 - Pneumonia, unspecified organism Status: Acute (6) Hypoxemia ICD Code: R09.02 - Hypoxemia Status: Acute Assessment and Plan 67-year-old female admitted secondary to hypoxemia and bilateral pneumonia Acute hypoxemic respiratory failure Hypoxia Chronic Interstitial lung disease Resolving on current treatments Continue treating influenza Continue antibiotics, bronchodilators, oxygen, and respiratory support with nebulizers Pulmonology following Diabetes mellitus type 2 Exacerbated secondary to steroids Follow blood sugars Insulin sliding scale Diabetic diet Hypertension Continue baseline treatment Follow blood pressures Adjust treatments as needed Discharge Planning Possible discharge tomorrow if ambulatory without need for oxygen Problem Qualifiers (1) Pneumonia: Qualified Codes: J18.9 - Pneumonia, unspecified organism Prince Sanford MD Dec 04, 2017 16:42
[2017-12-04] MEDS: ENOXAPARIN SODIUM 40 MG/0.4 ML SYRINGE SQ SCH (17:01)
[2017-12-04] MEDS: cefTRIAXone INJ 1,000 MG in SODIUM CHLORIDE 0.9% INJ 100 ML IV SCH (17:02)
[2017-12-04] MEDS: AZITHROMYCIN INJ 500 MG in SODIUM CHLOR 0.9% 250 ML INJ 250 ML IV SCH (18:37)
[2017-12-04] MEDS: ATORVASTATIN 10 MG TAB PO SCH (21:46)
[2017-12-04] MEDS: INSULIN DETEMIR 100 UNITS/ML VIAL SQ SCH (22:27)
[2017-12-05] VITALS: BP 129/64; PULSE 78; RESP 20; TEMP 96; O2SAT 96
[2017-12-05] MEDS: methylPREDNISolone SOD SUCC 40 MG/1 ML VIAL IV PUSH SCH (05:04)
[2017-12-05] MEDS: MYCOPHENOLATE MOFETIL 500 MG TAB PO SCH (05:04)
[2017-12-05] MEDS: LEVOTHYROXINE SODIUM 88 MCG TAB PO SCH (05:04)
[2017-12-05] MEDS: RESP: ALBUTEROL 2.5 MG/IPRATROPIUM 0.5 MG NEB (SCH) INH ×2 (07:40→14:24)
[2017-12-05 07:42] VITALS: O2SAT 98
[2017-12-05 08:00] VITALS: BP 148/71; PULSE 84; RESP 18; TEMP 97.7; O2SAT 95
[2017-12-05] MEDS: INSULIN ASPART SUPPLEMENTAL SCALE SQ SCH ×2 (08:00→12:57)
[2017-12-05] MEDS: MELOXICAM 15 MG TAB PO SCH (08:07)
[2017-12-05] MEDS: ASPIRIN 81 MG CHEW TAB CHEW SCH (08:07)
[2017-12-05] MEDS: SERTRALINE HCL 50 MG TAB PO SCH (08:08)
[2017-12-05] MEDS: DOCUSATE SODIUM 100 MG CAP PO SCH (08:08)
[2017-12-05] MEDS: METOPROLOL SUCCINATE 50 MG EXTENDED RELEASE TAB PO SCH (08:08)
[2017-12-05] MEDS: SODIUM CHLORIDE 0.9% FLUSH 10 ML FLUSH IV FLUSH SCH (08:08)
[2017-12-05] MEDS: OSELTAMIVIR PHOSPHATE 75 MG CAP PO SCH (08:08)
[2017-12-05] MEDS ORDERED: predniSONE 10 MG TAB PO SCH (09:15)
[2017-12-05] MEDS ORDERED: LEVA500T33 PO (09:44)
[2017-12-05] MEDS ORDERED: LACTTAB8 PO (09:44)
[2017-12-05] MEDS ORDERED: OXYGENDME NAS.CANULA (09:44)
[2017-12-05] MEDS ORDERED: PRED10 PO (09:44)
[2017-12-05] MEDS ORDERED: AZIT500T2 PO (09:44)
[2017-12-05] MEDS ORDERED: OSEL75 PO (10:17)
--- NOTE | 2017-12-05 10:21 | HHI.DS ---
Discharge Summary Admission Date Dec 02, 2017 at 16:03 Discharge Date: Dec 05, 2017 Admitting Diagnosis Hypoxemia, bilateral pneumonia (1) Acute hypoxemic respiratory failure ICD Code: J96.01 - Acute respiratory failure with hypoxia Diagnosis: Principal (2) DM2 (diabetes mellitus, type 2) ICD Code: E11.9 - Type 2 diabetes mellitus without complications Diagnosis: Principal (3) HTN (hypertension) ICD Code: I10 - Essential (primary) hypertension Diagnosis: Principal (4) Interstitial lung disease ICD Code: J84.9 - Interstitial pulmonary disease, unspecified Diagnosis: Principal Procedures None Brief History - From Admission This patient is a pleasant 67-year-old female with a history of interstitial lung disease and sarcoidosis who has come to the hospital complaining of increased shortness of breath for the last 2 days. Recently she was on a bus trip from [facility] to [place] and arrived home yesterday. Yesterday evening her who was in the room and says that she was wheezing and making "God awful "breathing sounds. he checked her oxygen at home and it was in the low 80s. Increased work of breathing and wheezes and has hypoxemic on ambulation in the emergency room. She had a nebulizer at home but it was discontinued per her providers. Since that time she has received some bronchodilators and steroids and felt a little better. Patient is admitted to the hospital with acute hypoxemic respiratory failure CBC/BMP: 12/03/17 0822 12/03/17 0822 Significant Findings Laboratory Tests Test 12/02/17 12:50 12/02/17 13:35 12/03/17 08:22 Red Blood Count 3.96 MIL/MM3 (4.00-5.30) 3.89 MIL/MM3 (4.00-5.30) Neutrophils (%) (Auto) 72.8 % (16.0-70.0) 88.6 % (16.0-70.0) Monocytes (%) (Auto) 11.5 % (0.0-8.0) Basophils (%) (Auto) 2.9 % (0.0-2.0) Monocytes # (Auto) 1.1 TH/MM3 (0-0.9) Basophils # (Auto) 0.3 TH/MM3 (0-0.2) Random Glucose 184 MG/DL (74-106) 205 MG/DL (74-106) Calcium Level 8.4 MG/DL (8.5-10.1) B-Type Natriuretic Peptide 133 PG/ML (0-100) Blood Gas HCO3 21 mmol/L (22-26) Blood Gas Base Excess -2.7 mmol/L (-2-2) Blood Gas Oxygen Saturation 84 % (90-100) Arterial Blood pH 7.45 (7.380-7.420) Arterial Blood Partial Pressure CO2 30 mmHG (38-42) Arterial Blood Partial Pressure O2 56 mmHG (61-120) Blood Gas Hemoglobin 11.8 G/DL (12.0-16.0) Hemoglobin 11.5 GM/DL (11.6-15.3) Hematocrit 34.8 % (35.0-46.0) Lymphocytes # (Auto) 0.6 TH/MM3 (1.0-4.8) Blood Urea Nitrogen 22 MG/DL (7-18) Carbon Dioxide Level 17.7 MEQ/L (21.0-32.0) PE at Discharge GENERAL: This is a well-nourished, well-developed patient, dyspneic at rest CARDIOVASCULAR: Regular rate and rhythm without murmurs, gallops, or rubs. RESPIRATORY: Scattered wheezes but improved airflow GASTROINTESTINAL: Abdomen soft, non-tender, nondistended. Normal active bowel sounds MUSCULOSKELETAL: Extremities without clubbing, cyanosis, or edema. NEURO: Alert & Oriented x4 to person, place, time, situation. Moves all ext x4 Hospital Course Mrs. Cuevas is a 67 year old female. She has a history of interstitial lung disease and sarcoidosis. Influenza with evidence of pneumonia were found when she was admitted here with respiratory distress and hypoxia. She is treated with steroids antibiotics and breathing treatments. She is having improvement, but this is more slow going due to underlying comorbidities as stated. She has improved enough to be functional at this point. She needs oxygen at discharge, for home. Medically stable for discharge to home with oxygen today and completion of oral treatments (steroids, antibiotics, tamiflu, MDI Inhaler of albuterol). Pt Condition on Discharge: Stable Discharge Disposition: Discharge Home Discharge Time: > 30 minutes Discharge Instructions DIET: Follow Instructions for: As Tolerated, No Restrictions Activities you can perform: Regular-No Restrictions Follow up Referrals: PCP Follow-up - 2 Weeks Pulmonology - 2 Weeks New Medications: Albuterol 18 GM Inh (Ventolin Hfa 18 GM Inh) 90 Mcg/Act Aer 2 PUFF INH Q4H PRN for SHORTNESS OF BREATH, #1 INHALER 0 Refills Azithromycin (Azithromycin) 500 Mg Tab 500 MG PO DAILY for Infection, #3 TAB 0 Refills Lactobacillus Acidophilus (Lactobacillus Acidophilus) 1 Billion Cell Tab 1 TAB PO TIDAC for Nutritional Supplement, #30 TAB 0 Refills Levofloxacin (Levaquin) 500 Mg Tablet 500 MG PO DAILY for Infection, #7 TAB 0 Refills Oxygen (O2) (Oxygen (O2)) Device LITER TERENCE.CANULA CONTINUOUS for Prevent Hypoxemia, #2 Oxygen Concentrator Portable Gaseous 2 L/min via Nasal Canula Continuous For 99 months Prednisone (Prednisone) 10 Mg Tab 10 MG PO DIRECTED for Inflammation, #20 TAB 0 Refills 2 pills by mouth Daily, Day 1 to 6 1 pill by mouth Daily, Day 7 to 12 1/2 pill by mouth Daily, Day 13 to 16 Then Stop Oseltamivir (Tamiflu) 75 Mg Cap 75 MG PO BID for Flu, #4 CAP Continued Medications: Amlodipine (Amlodipine) 10 Mg Tab 10 MG PO DAILY for Blood Pressure Management, #30 TAB 0 Refills Aspirin (Aspirin) 81 Mg Chew 81 MG CHEW DAILY, TAB 0 Refills Atorvastatin (Atorvastatin) 10 Mg Tab 10 MG PO HS for Cholesterol Management, #30 TAB 0 Refills Insulin Aspart Inj (Novolog Inj) 1,000 Unit/10 Ml Vial 1-9 UNITS SQ ACHS for Blood Sugar Management, #10 ML 0 Refills Max dose at bedtime:( )units; sugars less than 70,(0)units; sugars 150-199,(1) unit; sugars 200-249,(3) units; sugars 250-299,(5) units; sugars 300-349,(7) units; sugars greater than 349,(9) units Insulin Glargine Inj (Lantus Inj) 1,000 Unit/10 Ml Vial 12 UNITS SQ HS for Blood Sugar Management, VIAL 0 Refills Levothyroxine (Levothyroxine) 88 Mcg Tab 88 MCG PO DAILY for Thyroid, #30 TAB 0 Refills Meloxicam (Meloxicam) 15 Mg Tab 15 MG PO DAILY for Arthritis Pain, #30 TAB 0 Refills Metoprolol Succinate ER 24 HR (Metoprolol Succinate ER 24 HR) 100 Mg Tab 100 MG PO DAILY, #30 TAB 0 Refills Mycophenolate (Mycophenolate) 250 Mg Cap 1000 MG PO BID for Immunosuppression, #240 CAP 0 Refills Sertraline (Sertraline) 50 Mg Tab 50 MG PO DAILY, #30 TAB 0 Refills Prince Sanford MD Dec 05, 2017 10:21
[2017-12-05] MEDS ORDERED: VENTAER INH (10:22)
--- NOTE | 2017-12-05 13:57 | HHI.FF ---
Face to Face Verification Diagnosis: (1) Interstitial lung disease (2) Hypoxemia (3) Acute hypoxemic respiratory failure Home Health Nursing Order: Oxygen administration education I have seen patient Nohemi Dotson on 12/05/17. My clinical findings support the need for the requested home health care services because: Patient has SOB Deconditioned w/ increased weakness I certify that my clinical findings support that this patient is homebound because: Hx COPD- exertion dyspnea/weakness Unsafe to leave home unassisted Unable to use public transportation Prince Sanford MD Dec 05, 2017 13:57
== END 2017-12-05 16:14 | disposition home or self-care (01) | DRG 189 ==
LOC: PHED 12:19 → PHEDA 16:03 → PH3A 16:44
PROVIDERS: ADMIT Hospitalist; ATTEND Hospitalist
DX: J96.01 Acute respiratory failure with hypoxia (principal); J84.9 Interstitial pulmonary disease, unspecified; J18.9 Pneumonia, unspecified organism; I49.5 Sick sinus syndrome; J10.1 Influenza due to other identified influenza virus with other respiratory manifestations; D86.0 Sarcoidosis of lung; E11.9 Type 2 diabetes mellitus without complications; I10 Essential (primary) hypertension; M79.89 Other specified soft tissue disorders; T38.0X5A Adverse effect of glucocorticoids and synthetic analogues, initial encounter; E07.9 Disorder of thyroid, unspecified; Z95.0 Presence of cardiac pacemaker
CPT/HCPCS: 36600; 71045; 71275; 80048; 82805; 82948; 83880; 84484; 85025; 85610; 85730; 87804; 93005; 94618; 94640; 94664; 96374; J0456; J0696; J1650; J1815; J1956; J2920; J7050; J7512; J7517; Q9967